=== PATIENT | female | born 1965 | race Caucasian/White ===

== ENCOUNTER 2019-02-23 16:44 | Observation (INO) ==
[2019-02-23] MEDS ORDERED: NITROGLYCERIN 0.4 MG SL TAB (BOTTLE OF 3) SL PRN ×2 (17:08→19:04)
[2019-02-23] MEDS ORDERED: Sodium Chloride 0.9% 1,000 ML PRIMARY IV ONE (17:08)
[2019-02-23] MEDS ORDERED: ASPIRIN 81 MG (BABY) CHEWABLE TABLET PO ONE (17:08)
--- NOTE | 2019-02-23 17:10 | EKG ---
[address] [place] [address] [place] [address] Test Date: 2019-02-23 Pat Name: Renée Carranza Department: ER Room: 311 Gender: F Proposal Editor: ABELINO : 1965 Requested By: JESSICA JIMENEZ Order Number: [id number] Reading MD: Hayes Neff MD Measurements Intervals [place] Rate: 70 P: 54 [place]: 127 QRS: 14 QRSD: 97 T: 14 QT: 367 QTc: 397 Interpretive Statements SINUS RHYTHM No previous ECG available for comparison and no acute injury patterns Electronically Signed On 02-24-2019 10:04:04 MDT by Hayes Neff MD [id number]
[2019-02-23 17:14] LABS: BASOPHILS # (AUTO) 0.01 10*3/UL; BASOPHILS % (AUTO) 0.2 % (0-1); EOSINOPHILS # (AUTO) 0.08 10*3/UL; EOSINOPHILS % (AUTO) 1.3 % (0-8); Hematocrit [HCT] 44.8 % (37.0-47.0); Hemoglobin [HGB] 14.4 g/dL (12.0-16.0); LYMPHOCYTES # (AUTO) 2.01 10*3/uL; MEAN CORPUSCULAR HGB CONC 32.1 g/dL (33-37); MEAN CORPUSCULAR VOLUME 79.4 FL (81-99); MEAN PLATELET VOLUME 10.4 FL (7.4-12.2); MONOCYTES # (AUTO) 0.45 10*3/UL (0.3-0.8); NEUTROPHILS # (AUTO) 3.83 10*3/UL; NEUTROPHILS % (AUTO) 59.8 % (50-80); RED BLOOD COUNT 5.64 10^6/uL (4.20-5.40)
[2019-02-23 17:21] LABS: BLOOD UREA NITROGEN 14 mg/dL (7-22); SERUM ALBUMIN 4.5 g/dL (3.5-4.8)
[2019-02-23 17:24] LABS: PLATELET MORPHOLOGY COMMENT NORMAL MORPHOLOGY (NORM); RBC MORPHOLOGY COMMENT NORMAL MORPHOLOGY (NORM); WBC MORPHOLOGY COMMENT NORMAL MORPHOLOGY (NORM)
[2019-02-23 17:26] LABS: VENOUS PH 7.39 (7.32-7.42)
--- NOTE | 2019-02-23 17:47 | DI ---
AP CHEST X-RAY, 02/23/2019 5:08 PM : Clinical History: Chest pain. Previous Exam: None at this facility. Soft Tissues: No acute soft tissue abnormality. Bones: Normal. Heart: Heart Size: Normal. Vascular Pedicle Width: Normal. Azygous Vein: Normal size. Vascular Flow P attern:Normal. Pulmonary Arteries: Normal. Lungs: No infiltrates. Effusion(s): None. Mediastinum: Normal. Nodules: No pulmonary nodules. Reading: Negative chest x-ray.
[2019-02-23] MEDS ORDERED: LIDOCAINE W/ SODIUM BICARB 0.5 ML SYR SUBD PRN (19:04)
[2019-02-23] MEDS ORDERED: CALCIUM CARBONATE 500 MG (TUMS) CHEWABLE TABLET PO PRN (19:04)
--- NOTE | 2019-02-23 20:35 | PDOC ---
HPI - History of Present Illness History of Present Illness: Is a very nice 53-year-old female with past medical history for diabetes for 10 years she lives in the [place] in here visiting family she is still at a 1 over nurses Larisa Crawford. She has been having some chest pain and shortness of breath with exertion for the last 5 days this happened yesterday and the day before when she [place] go [place] and also try to clean a shed. She was told to come to the ER yesterday but opted to come today. Because of her multiple risk factors and symptoms was admitted for further evaluation and treatment. Also her blood sugar is around 400 she has not been taking her by mouth meds and the last hemoglobin A1c was above 10. She states that she lost her insurance and cannot afford to take these medications any longer Past Medical History Medical History: Diabetes, hypertension,vitiligo, depression Tobacco Use: Never Smoker In the Past 12 Months, Have Used or Abuse Any of the Following Substance: None Alcohol Use: None Medication / Allergies Home Medications: Home Medications Medication Instructions Recorded Confirmed Atorvastatin Calcium 10 mg PO DAILY 02/23/19 02/23/19 Bupropion HCl [Bupropion Xl] 300 mg PO DAILY 02/23/19 02/23/19 Dapagliflozin Propanediol [Farxiga] 10 mg PO DAILY 02/23/19 02/23/19 Glimepiride 1 mg PO DAILY 02/23/19 02/23/19 Hydrochlorothiazide [HydroDiuril] 25 mg PO DAILY 02/23/19 02/23/19 Losartan Potassium 100 mg PO DAILY 02/23/19 02/23/19 Metformin HCl 1,000 mg PO BID 02/23/19 02/23/19 tiZANidine Tab [Zanaflex Tab] 4 mg PO Q8H 02/23/19 02/23/19 traZODone Tab [Desyrel Tab] 50 mg PO HS 02/23/19 02/23/19 Allergies/Adverse Reactions: Allergies Allergy/AdvReac Type Severity Reaction Status Date / Time erythromycin base Allergy Shortness Verified 02/23/19 17:01 of Breath Sulfa (Sulfonamide Allergy Shortness Verified 02/23/19 17:01 Antibiotics) of Breath Review of Systems - Review of Systems All Systems: Reviewed & No Additional Complaints Except as Stated - Respiratory Respiratory: REPORTS: Dyspnea with Exertion - Cardiovascular Cardiovascular: REPORTS: Chest Pain - Gastrointestinal Gastrointestinal / Abdominal: DENIES: Negative System Review, Nausea, Vomiting, Diarrhea, Constipation, Abdominal Pain, Bloody Stool, Poor Appetite, Heartburn, Regurgitation, Bloating, Lactose Intolerance, Melena, Bright Red Blood per Rectum, Other, See HPI Exam - Vitals Vital Signs: Vital Signs Temperature 97.8 F Pulse Rate [Pulse Oximeter] 83 Respiratory Rate 16 Blood Pressure [Left Arm] 187/110 Pulse Ox 93 Oxygen Delivery Method Room Air Height 5 ft 3 in Weight 164 lb 4.8 oz - General General Appearance: No Acute Distress, Cooperative - Head Head Exam: Normal Inspection, Normocephalic, Atraumatic - Respiratory Respiratory Exam: POSITIVE: Clear to Auscultation - Bilaterally, Breathing Non Labored, Normal To Percussion, Normal to Percussion and Palpation - Cardiovascular Cardiovascular Exam: POSITIVE: RRR, No Murmur, No Clicks, No Gallops, No Rubs, PMI Non-Displaced - GI/Abdominal GI/Abdominal Exam: POSITIVE: Non Tender, Non Distended, Soft - Extremities Extremities Exam: POSITIVE: No Clubbing Present, No Edema Present, No Cyanosis Present - Neurological Neurological Exam: POSITIVE: Alert, Oriented x 3, No Facial Droop, Speech Intact / Clear, Moves All Extremities Equally - Psychiatric Psychiatric Exam: POSITIVE: Normal Affect Results - Labs CBC and BMP: 02/23/19 16:56 02/23/19 16:56 Assessment and Plan - Patient Problems (1) Diabetes Current Visit: Yes Status: Acute Code(s): E11.9 - Type 2 diabetes mellitus without complications (2) Chest pain Current Visit: Yes Status: Acute Code(s): R07.9 - Chest pain, unspecified (3) Hypertension Current Visit: Yes Status: Acute Code(s): I10 - Essential (primary) hypertension (4) Depression Current Visit: Yes Status: Acute Code(s): F32.9 - Major depressive disorder, single episode, unspecified - Assessment / Plan Additional Assessment/Plan Details: #1 chest pain/shortness of breath on exertionpatient is a diabetic multiple risk factors Lexiscan stress test in a.m./troponins every 63. #2 hyperosmolar state elevated sugars patient has not been taking her meds we will hydrate patient aggressively with one 25 normal saline with potassium #3 diabetes mellitushemoglobin A1c above 10 when she last checked it A few months ago patient unable to buy medication we will switch patient to Lantus and pre-meal short-acting she agrees #4 hypertension she is on losartan we will stop her hydrochlorothiazide since she has hypokalemia and this can also cause hyponatremia we will monitor blood pressure and either levo losartan we will look at the [facility] list for a $4 meds to choose JOHANA inhibitor/or AARb #5 history of asthma we'll start Advair 250/50 I have explained all the side effects of her diabetes meds she is okay to go on insulin until she is better controlled and may be retry orals later on. I did tell her that the stress test as of today event in case it is positive she will need to be transferred to [place] to see a director sports she agrees. All answer all questions answered from all family members
[2019-02-23] MEDS: tiZANidine Tab 4 MG TAB PO SCH (20:44)
[2019-02-23] MEDS ORDERED: LORazepam 2 MG/1 ML VIAL IVP PRN (20:47)
[2019-02-23] MEDS ORDERED: metFORMIN 500 MG TABLET PO SCH (21:00)
[2019-02-23] MEDS: Insulin Glargine SoloStar Inj 100 UNIT/ML INSULN.PEN SUBCUT SCH (21:05)
[2019-02-23] MEDS: traZODone Tab 50 MG TAB PO SCH (21:05)
[2019-02-23] MEDS: ATORVASTATIN 10 MG TABLET PO SCH (21:05)
[2019-02-23] MEDS: FLUTICASONE/SALMETEROL 250/50 UD INHALER INH SCH (22:35)
[2019-02-24 05:02] LABS: BLOOD UREA NITROGEN 10 mg/dL (7-22); CHOL/HDL RATIO 4.23 RATIO (0-4.0); SERUM ALBUMIN 3.7 g/dL (3.5-4.8)
[2019-02-24] MEDS: tiZANidine Tab 4 MG TAB PO SCH ×3 (07:04→20:00)
[2019-02-24] MEDS: FLUTICASONE/SALMETEROL 250/50 UD INHALER INH SCH ×2 (07:09→19:22)
[2019-02-24] MEDS: Insulin Lispro Flexpen 300 UNIT/3 ML INSULN.PEN SUBCUT SCH ×2 (07:40→11:11)
--- NOTE | 2019-02-24 08:31 | PDOC ---
Chest Pain HPI - General Chief Complaint: Chest Pain Stated Complaint: CHEST PAIN Date Seen by Provider: 02/23/19 Time Seen by Provider: 17:00 Source: Patient, Other (Niece) Exam Limitations: POSITIVE: No limitations Treatment Prior to Arrival: REPORTS: None Nurse's Notes Reviewed & Considered: Yes - History of Present Illness Initial Comments: The patient is a 53-year-old female who is brought to the emergency room by her niece. Patient lives in [place] and is here visiting relatives. Patient sta eitan that for the past week she has had "a hard time breathing." She also states that she has central chest pressure "like a brick laying on my chest". Patient has a history of hypertension and type II diabetes mellitus. She states her diabetes would diagnosed 2 years ago. She also has a history of hypercholesterolemia. She is on metformin andFarxiga for her diabetes. She is also on losartan. Atorvastatin. She Is onGlimeperide for diabetes. Patient states she has a family history of heart disease involving her father and paternal relatives. She states her blood sugar has been poorly controlled recently. Body Location Affected: REPORTS: Chest Timing: REPORTS: Constant, Getting Worse Duration: >1 week (Weeks) Severity: Moderate Persistent/Worse since (date): 02/08/19 Persistent/Worse since (time): 10:00 Context: REPORTS: Activity, Exertion Quality: REPORTS: Pressure Radiation: REPORTS: None Associated Symptoms: REPORTS: Shortness of Breath. DENIES: Nausea, Vomiting, Diaphoresis, Hurts to Breathe, Palpitations, Productive Cough (blood), Productive Cough (sputum), Weakness, Dizziness Modifying Factors: improves with: None Reported Similar Symptoms Previously: Yes Recently seen/treated/hospitalized: No Any Prior Injuries Related to Current Complaint?: No - Patient Home Medications Home Medications: Home Medications Atorvastatin Calcium 10 mg PO DAILY 02/23/19 Bupropion HCl [Bupropion Xl] 300 mg PO DAILY 02/23/19 Dapagliflozin Propanediol [Farxiga] 10 mg PO DAILY 02/23/19 Glimepiride 1 mg PO DAILY 02/23/19 Hydrochlorothiazide [HydroDiuril] 25 mg PO DAILY 02/23/19 Losartan Potassium 100 mg PO DAILY 02/23/19 Metformin HCl 1,000 mg PO BID 02/23/19 tiZANidine Tab [Zanaflex Tab] 4 mg PO Q8H 02/23/19 traZODone Tab [Desyrel Tab] 50 mg PO HS 02/23/19 - Patient Allergies Allergies/Adverse Reactions: Allergies Allergy/AdvReac Type Severity Reaction Status Date / Time erythromycin base Allergy Shortness Verified 02/24/19 07:02 of Breath Sulfa (Sulfonamide Allergy Shortness Verified 02/24/19 07:02 Antibiotics) of Breath Past Medical History - heen HEENT History: Denies History Cardiovascular History: Hypertension, Hyperlipidemia Respiratory History: Asthma, Shortness of Breath Gastrointestinal History: Denies History Genitourinary History: Denies History Endocrine History: Type 2 Diabetes (oral) Musculoskeletal History: Other (please comment) Additional Musculoskeletal History: fx right ankle Neurological History: Denies History Blood Disorders: Denies History Psychiatric History: Denies History History of Sexually Transmitted Diseases: No Female Reproductive History: Hysterectomy Obstetrical History: Other (please comment) Additional Obstetrical History: hysterectomy Cancer History: Denies History In Past Year Been Physically Harmed or Verbally Threatened: No History of MDRO: No History of Other Communicable Diseases: No Tobacco Use: Never Smoker In the Past 12 Months, Have Used or Abuse Any Substance: None Previous Surgical History: No Past Medical History Reviewed: Reviewed - No Changes ROS - Limitations ROS Limitations: No Limitations Constitution: REPORTS: Denies Symptoms Cardiovascular: REPORTS: Chest Pain Respiratory: REPORTS: Shortness Of Breath Neurological: REPORTS: Denies Neuro Symptoms Gastrointestinal: REPORTS: Denies GI Symptoms Endocrine: REPORTS: Denies Symptoms Musculoskeletal: REPORTS: Denies MS Symptoms Genitourinary: REPORTS: Denies Symptoms Eyes: REPORTS: Denies Symptoms ENT: REPORTS: Denies Symptoms Skin: REPORTS: Denies Skin Symptoms Lympathic: REPORTS: Denies Lympathic Symptoms Immunologic: POSITIVE: Denies Symptoms Psychiatric: POSITIVE: Denies Psych Symptoms Chest Pain PE - General Appearance General Appearance: REPORTS: Alert, Cooperative, No Acute Distress, No Evidence of Trauma - HEENT HEENT: POSITIVE: Head Inspection Nml, Eyes Inspection Nml, Ears Inspection Nml, Nose Inspection Nml, Oral/Dental Inspect. Nml, Pharynx Inspect. Nml, PERRL, EOMI - Neck Neck: REPORTS: Normal Inspection, No Carotid Bruit - Respiratory Respiratory: REPORTS: No Respiratory Distress, Breath Sounds Normal, Chest Non- Tender - Cardiovascular Cardiovascular: REPORTS: Regular Rate and Rhythm, Heart Sounds Normal, Equal Pulses, Strong Pulses, No Murmur, No Gallop, No Friction Rub, No JVD Peripheral Pulses: Radial (R): 2+, Radial (L): 2+ - Abdomen Abdomen: Soft: (All Quadrants), Normal Bowel Sounds: (All Quadrants), Denies Tenderness: (All Quadrants), No Splenomegaly: (All Quadrants), No Hepatomegaly: (All Quadrants), No Guarding: (All Quadrants), No Rebound: (All Quadrants), No Palpable Pulse: (All Quadrants), No Palpabale Mass: (All Quadrants), No Distention: (All Quadrants), No Rigidity: (All Quadrants) - Skin Skin: REPORTS: Intact, Normal For Race, Warm, Dry, No Rash - Extremities Extremity: Non-Tender: (All Extremities), Normal ROM: (All Extremities), Normal Inspection: (All Extremities) - Neurological / Psychological Neurological: POSITIVE: Affect Apporpriate, Oriented X3, chief warden Normal As Tested, Motor Normal, Sensation Normal Images - Complete Complete: 1 - Area described "heaviness and pressure ". Chest Pain Progress - Results Reviewed by me Xrays/CTs/US Reviewed by me: Yes Discussed with Radiologist: Yes Radiology Findings: Chest x-ray normal Lab Results Reviewed by Me: Yes (normal) CBC and BMP: 02/23/19 16:56 02/24/19 04:05 Lab Results:: Laboratory Results 02/23/19 02/23/19 02/23/19 16:56 16:56 16:56 WBC 6.39 RBC 5.64 H Hgb 14.4 Hct 44.8 MCV 79.4 L MCH 25.5 L MCHC 32.1 L RDW Std Deviation 43.3 RDW Coeff of Mimi 14.9 H Plt Count 286 MPV 10.4 Immature Gran % (Auto) 0.2 Neut % (Auto) 59.8 Lymph % (Auto) 31.5 [place] % (Auto) 7.0 Eos % (Auto) 1.3 Baso % (Auto) 0.2 Immature Gran # (Auto) 0.01 Neut # (Auto) 3.83 Lymph # (Auto) 2.01 [place] # (Auto) 0.45 Eos # (Auto) 0.08 Baso # (Auto) 0.01 WBC Morphology Comment Normal morphology Plt Morphology Comment Normal morphology RBC Morph Comment Normal morphology D-Dimer 250 VBG pH VBG pCO2 VBG HCO3 VBG Base Excess Sodium 140 Potassium 3.1 L Chloride 103 Carbon Dioxide 26 Anion Gap 11 BUN 14 Creatinine 0.7 Estimated GFR > 60 BUN/Creatinine Ratio 20.00 Glucose 404 H* Calculated Osmolality 307.0 H Calcium 9.5 Total Bilirubin 0.3 AST 28 ALT 14 Alkaline Phosphatase 149 H CK-MB (CK-2) Troponin I Total Protein 7.5 Albumin 4.5 Globulin 3.1 Albumin/Globulin Ratio 1.40 02/23/19 02/23/19 02/23/19 16:56 16:56 17:20 WBC RBC Hgb Hct MCV MCH MCHC RDW Std Deviation RDW Coeff of Mimi Plt Count MPV Immature Gran % (Auto) Neut % (Auto) Lymph % (Auto) [place] % (Auto) Eos % (Auto) Baso % (Auto) Immature Gran # (Auto) Neut # (Auto) Lymph # (Auto) [place] # (Auto) Eos # (Auto) Baso # (Auto) WBC Morphology Comment Plt Morphology Comment RBC Morph Comment D-Dimer VBG pH 7.39 VBG pCO2 40 L VBG HCO3 24 VBG Base Excess -1 Sodium Potassium Chloride Carbon Dioxide Anion Gap BUN Creatinine Estimated GFR BUN/Creatinine Ratio Glucose Calculated Osmolality Calcium Total Bilirubin AST ALT Alkaline Phosphatase CK-MB (CK-2) 3.20 Troponin I < 0.012 Total Protein Albumin Globulin Albumin/Globulin Ratio EKG Interpreted/Reviewed By Me:: Yes (normal) EKG Interpretation:: POSITIVE: Normal Sinus Rhythm, Normal Rate, Normal Intervals, Normal [place], Normal QRS, Normal ST/T - Patient's Progress Pain Medication Addressed: POSITIVE: Yes (Patient given nitroglycerin 0.4 mg sublingual) School/Work Release Addressed: POSITIVE: Not Applicable Re-Examine Time: 18:25 Re-Examine Comment: Unchanged. Results of laboratory, radiologic electrocardiographic studies reviewed with patient. Blood glucose is inadequately controlled and is 404. Venous blood gases are normal. Troponin an d d-dimer are normal. Patient advised them not sure what is causing her chest discomfort/pain and shortness of breath. She has several cardiac risk factors including diabetes mellitus, hypertension, hypercholesterolemia and a strong family history. Case was discussed with hospitalist on-call, Dr. Torres, who has admitted the patient will further evaluation and treatment. Status: POSITIVE: Unchanged, Re-Examined Quality Measure Initiative: CP/AMI: POSITIVE: EKG - Consult Consult (If Yes, Name of Consulting MD & Time Called): Yes (Dr. Torres, [id number]) Consulting MD will see pt:: [place]IVE[place] [facility] [place] Counseled: POSITIVE: Patient, Family, RE: Lab Results, RE: Radiology Results, RE: DX, RE: Need for F/U Patient Care Time - Estimated PCT Patient Care Time (In Minutes): 45 Vital Signs - VS Reviewed Vital Signs Reviewed: Yes Discharge Clinical Impression: Chest pain, Dyspnea, Hyperglycemia due to type 2 diabetes mellitus Discharge Disposition: Admit to Inpatient Condition: Stable Patient Problem(s) Reviewed: Yes Date Decision to Admit to Inpatient: 02/23/19 Time Decision to Admit to Inpatient: 18:20
[2019-02-24] MEDS ORDERED: HYDROCHLOROTHIAZIDE 25 MG TABLET PO SCH (09:00)
[2019-02-24] MEDS ORDERED: LOSARTAN 50 MG TABLET PO SCH (09:00)
[2019-02-24 09:01] LABS: HEMOGLOBIN A1C 9.92 % (4.2-6.0)
--- NOTE | 2019-02-24 09:19 | STRESSTEST ---
[address] [place] [address] Test Date: 2019-02-24 Pat Name: Renée Carranza Department: MED/SURG Room: 311 Gender: Female K 9 Handler/ Deputy: gentry : 1965 Requested By: JENNIE LIVINGSTON Order Number: [id number] Reading MD: Hayes Neff MD Interpretive Statements 53 yo female with hx of diabetes comes in with chest pain and sob on exertion, no acute changes will await pictures Electronically Signed On 02-24-2019 10:09:07 MDT by Hayes Neff MD [id number]
[2019-02-24] MEDS: buPROPion XL Tab 150 MG TAB PO SCH (09:37)
[2019-02-24] MEDS ORDERED: Hold Metformin-See Instruction 1 EACH MIS PRN (10:50)
--- NOTE | 2019-02-24 11:17 | PDOC(PROG) ---
Interval History: Patient is doing well stress test half first part was done. Patient still states that she is having this 5 out of 10 chest pain but this is been the same for the last couple weeks. Nitroglycerin did not help in the ER she did not have any actual chest pain while doing the stress test. Objective : Data - Labs CBC and BMP: 02/23/19 16:56 02/24/19 04:05 Objective : Exam - Head Head Exam: Normal Inspection, Normocephalic, Atraumatic - Respiratory Respiratory Exam: Clear to Auscultation - Bilaterally, Breathing Non Labored, Normal To Percussion, Normal to Percussion and Palpation - Cardiovascular Cardiovascular Exam: RRR, No Murmur, No Clicks, No Gallops, No Rubs, PMI Non- Displaced - GI/Abdominal GI/Abdominal Exam: Normal Bowel Sounds, Non Tender, Non Distended, Soft, No Masses, No Hepatomegaly, No Splenomegaly, No Organomegaly Assessment and Plan - Patient Problems (1) Chest pain Current Visit: Yes Status: Acute Comment: First part of stress test done considering she has this pain 5 out of 10 and it's been there steady for 5-2 weeks she is very poor story and will do a CTA to rule out PE. Also considering nitroglycerin has not helped in the ER and troponins are negative Code(s): R07.9 - Chest pain, unspecified (2) Diabetes Current Visit: Yes Status: Acute Comment: Continue Lantus 10 units at night her sugars were to 25 this morning Code(s): E11.9 - Type 2 diabetes mellitus without complications (3) Hypertension Current Visit: Yes Status: Acute Code(s): I10 - Essential (primary) hyp ertension (4) Depression Current Visit: Yes Status: Acute Code(s): F32.9 - Major depressive disorder, single episode, unspecified
--- NOTE | 2019-02-24 12:15 | DI ---
CT ANGIOGRAM OF THE CHEST, 02/24/2019 10:50 AM : Clinical History: Shortness of breath. Previous Exam: None at this facility. Technique: Scans from base of neck to lung bases with IV contrast. Bolus tracking protocol was used f or timing the injection. Non-MIPS and MIPS sagittal/coronal images generated. IV Contrast: 58 mL of Ultravist 370. Base of Neck: Normal. Nodes: Normal axillary, supraclavicular, mediastinal, and hilar lymph nodes. Heart: Normal. No coronary artery calcifications. Aorta: Ascending aorta is ectatic measuring 35 mm in AP and transverse measurements. There is no diss ection. The descending aorta has a normal caliber. Pulmonary Arteries: No pulmonary emboli or infarcts; there is pulmonary hypertension. Mediastinum: Normal. Lungs: No infiltrates. No evidence of underlying chronic lung disease. Effusion(s): None. Nodules: None. Bony Structures: Normal visualized portions of ribs, sternum, scapulae, clavicles, and shoulders. Nor mal visualized portions of thoracic spine. Limited Upper Abdomen: Normal adrenal glands. Mild splenomegaly. Fatty infiltration of the liver. READIN. Negative CTA of the chest. There are no pulmonary emboli or pulmonary infarcts. There is pulmonar y arterial hypertension without evidence of underlying chronic lung disease. 2. Ectatic ascending aorta measuring 35 mm in diameter. No dissection. 3. Mild to moderate fatty infiltration of the liver. Mild splenomegaly.
[2019-02-24] MEDS: ACETAMINOPHEN 325 MG TABLET PO PRN ×2 (13:55→20:09)
[2019-02-24] MEDS: ATORVASTATIN 10 MG TABLET PO SCH (20:09)
[2019-02-24] MEDS: traZODone Tab 50 MG TAB PO SCH (20:09)
[2019-02-24] MEDS: Insulin Glargine SoloStar Inj 100 UNIT/ML INSULN.PEN SUBCUT SCH (20:10)
[2019-02-25] MEDS: tiZANidine Tab 4 MG TAB PO SCH ×2 (04:59→13:17)
--- NOTE | 2019-02-25 06:04 | DCSUMMARY ---
Hospitalization Summary Hospital Course: Final Discharge Diagnosis: Current Visit Problems Problem Status Onset Code Diabetes Acute E11.9 Chest pain Acute R07.9 Hypertension Acute I10 Depression Acute F32.9 Chest pain Acute R07.9 Dyspnea Acute R06.00 Hyperglycemia due to type 2 diabetes mellitus Acute E11.65 Diagnostic Data, Laboratory Data, and Procedures of Signifigance: Laboratory Results 02/24/19 02/25/19 05:00 06:10 Sodium 142 Potassium 3.8 Chloride 104 Carbon Dioxide 29 Anion Gap 9 BUN 14 Creatinine 0.6 Estimated GFR > 60 BUN/Creatinine Ratio 23.33 H Glucose 204 H Mean Blood Glucose 244.336 Hemoglobin A1c 9.92 H Calculated Osmolality 300.0 H Calcium 9.9 History and Physical pertinent to Admission: Course of Hospitalization: #1 chest painC Lexiscan stress test results are still pending depending on final results if negative patient will be discharged home if positive patient will be transferred to [place] for further evaluation and treatment. She understands this and agrees. #2 diabetespatient is unable to afford any of her medication and she has not taken any her hemoglobin A1c is 9.9 we'll transition her to insulin Lantus 10 minutes at at night and 2 units of Humalog 3 times a day before breakfast lunch and dinner #3 CT scan of her chest revealed some mild pulmonary hypertension I recommend the patient should get a echo as an outpatient. #4 hypertensionpatient's meds were changed to lisinopril 20 twice a day and Norvasc 10 mg for better blood pressure control and these are to meds that on the [facility] list for $4 to help the patient afford them. Also low Shellie blood pressure still in the 150s to 160s. I called Mildred Crawford in [facility] if she wanted to pick to meds up she stated just to prevent prescription so she can pick them up maybe in [place] she wanted to #5 hypokalemiareplaced now 3.8 from 3.1 On the date of discharge, the patient was examined: Chest pain is resolved no nausea no vomiting troponins remain negative potassium was replaced Gen.: No acute distress, alert, nontoxic Heart: Regular rate and rhythm, no murmurs, clicks, gallops, or rubs Lungs: Clear to auscultation bilaterally, breathing is nonlabored Abdomen/GI: Normal tones on auscultation, soft, nontender, nondistended Musculoskeletal/extremities: No clubbing, cyanosis, or edema Vitals reviewed and are listed below Vital Signs (24 hrs) 02/24/19 07:00 02/24/19 07:17 02/24/19 09:00 Temperature Pulse Rate Pulse Rate Pulse Oximeter 71 71 Pulse Rate rt pointer finger 73 86 Respiratory Rate 20 Blood Pressure Left Arm 183/96 Pulse Ox 98 Pulse Ox rt pointer finger 92 93 02/24/19 11:00 02/24/19 12:45 02/24/19 15:00 Temperature 97.4 F Pulse Rate Pulse Rate Pulse Oximeter 75 Pulse Rate rt pointer finger 83 75 85 Respiratory Rate 20 Blood Pressure Left Arm 172/68 Pulse Ox 95 Pulse Ox rt pointer finger 93 94 94 02/24/19 15:57 02/24/19 16:09 02/24/19 16:55 Temperature 97.8 F Pulse Rate 65 Pulse Rate Pulse Oximeter 85 Pulse Rate rt pointer finger 83 Respiratory Rate 20 Blood Pressure Left Arm 184/70 Pulse Ox 94 Pulse Ox rt pointer finger 97 02/24/19 18:55 02/24/19 18:56 02/24/19 18:59 Temperature 97.2 F Pulse Rate 64 Pulse Rate Pulse Oximeter 61 Pulse Rate rt pointer finger Respiratory Rate 18 Blood Pressure Left Arm 176/67 Pulse Ox 96 Pulse Ox rt pointer finger 96 02/24/19 19:00 02/24/19 21:00 02/24/19 23:00 Temperature Pulse Rate 63 Pulse Rate Pulse Oximeter 64 Pulse Rate rt pointer finger Respiratory Rate Blood Pressure Left Arm Pulse Ox Pulse Ox rt pointer finger 92 93 02/24/19 23:55 02/25/19 01:00 02/25/19 03:00 Temperature 98.1 F Pulse Rate 58 L Pulse Rate Pulse Oximeter 76 Pulse Rate rt pointer finger Respiratory Rate 20 Blood Pressure Left Arm 133/54 Pulse Ox 98 Pulse Ox rt pointer finger 94 92 02/25/19 04:20 02/25/19 04:26 Temperature 97.6 F Pulse Rate Pulse Rate Pulse Oximeter 65 Pulse Rate rt pointer finger Respiratory Rate 18 Blood Pressure Left Arm 151/70 Pulse Ox 95 Pulse Ox rt pointer finger 95 Assessment and Plan: 1. As per discharge assessments above 2. Disposition: 3. Condition on discharge, stable and improved. 4. Diet: regular diet 5. Activities: resume normal activities 6. Follow-Up: 1. PCP 2. 7. Medications at the Time of Discharge: 8. Time, care, counseling and coordination of care for this discharge is greater than 30 minutes. Exam - Vitals Vital Signs: Vital Signs Temperature 97.6 F Temperature Source Temporal Artery Scan Pulse Rate [Pulse Oximeter] 65 Pulse Rate [rt pointer finger] 83 Pulse Rate 58 Respiratory Rate 18 Blood Pressure [Left Arm] 151/70 Blood Pressure 200/90 Pulse Ox [rt pointer finger] 95 Pulse Ox 95 Oxygen Flow Rate [rt pointer 1 finger] Oxygen Flow Rate 1 Oxygen Delivery Method [rt Room Air pointer finger] Oxygen Delivery Method Room Air Height 5 ft 3 in Weight 162 lb 6.4 oz Patient Problems - Patient Problem List (1) Chest pain Current Visit: Yes Status: Acute Code(s): R07.9 - Chest pain, unspecified Category: Medical (2) Diabetes Current Visit: Yes Status: Acute Code(s): E11.9 - Type 2 diabetes mellitus without complications Category: Medical (3) Hypertension Current Visit: Yes Status: Acute Code(s): I10 - Essential (primary) hypertension Category: Medical (4) Depression Current Visit: Yes Status: Acute Code(s): F32.9 - Major depressive disorder, single episode, unspecified Category: Medical
[2019-02-25 06:47] LABS: BLOOD UREA NITROGEN 14 mg/dL (7-22); BUN/CREATININE RATIO 23.33 (6-20)
[2019-02-25] MEDS: FLUTICASONE/SALMETEROL 250/50 UD INHALER INH SCH (06:49)
[2019-02-25] MEDS: Insulin Lispro Flexpen 300 UNIT/3 ML INSULN.PEN SUBCUT SCH ×2 (08:05→12:04)
[2019-02-25] MEDS ORDERED: LISINOPRIL 20 MG TABLET PO SCH (09:00)
[2019-02-25] MEDS: buPROPion XL Tab 150 MG TAB PO SCH (10:06)
[2019-02-25 12:01] VITALS: BP 145/65; RESP 12; TEMP 98.3
[2019-02-25] MEDS: ACETAMINOPHEN 325 MG TABLET PO PRN (13:09)
--- NOTE | 2019-02-25 13:12 | DI ---
2 DAY LEXISCAN STRESS & REST MYOCARDIAL PERFUSION SCANS, 02/24/2019 8:00 AM : Clinical History: Chest pain. Previous Exam: None at this facility. Monitoring Physician: Dr. Keon Torres. Dose: Stress dose: 37 mCi on 02/24/2019. Rest dose: 37 mCi on 02/25/2019. Quantitative Analysis: [employer] program without and with low dose limited CT chest scan attenuati on correction. Exam Quality: Excellent. Rejected Beats: Stress = 1%; Rest = 0%. HR: Stress = 61-69 b/m; Rest = 65-7 6 b/m. Left Ventricular Chamber Sizes: Normal at stress and rest. Transient Ischemic Dilatation Ratio: 1.17. Normal [place] TID <= 1.22; normal Lexiscan TID <= 1.33. LVEF: Stress: 77%. Rest: 73%. Myocardial Perfusion: The non-attenuated scans are normal at stress and rest. There is a small latera l basal ischemic segment seen on the attenuated corrected scans but these are felt not to be signific ant. Myocardial Wall Motion: Normal at stress and rest. Myocardial Thickening: Normal at stress and rest. Coronary Artery Calcifications: No coronary artery calcifications. Lungs: No lung nodules or enlarged nodes. Additional Findings: Diffuse fatty infiltration of the liver suspected. Readin. Normal left ventricular chamber size at stress and rest. TID is normal at 1.17. 2. Normal stress and rest LVEF values of 77% and 73%, respectively. 3. Normal stress and rest myocardial perfusion, wall motion, and thickening. 4. No lung nodules or hilar adenopathy. 5. Diffuse fatty infiltration of the liver suspected.
[2019-02-25 13:37] VITALS: O2SAT 94
== END 2019-02-25 14:20 | disposition home or self-care (01) ==
LOC: MED/SURG 16:44 → ER 16:44 → MED/SURG 18:56
PROVIDERS: ADMIT Internal Medicine; ATTEND Internal Medicine